=== PATIENT | male | born 2000 | race Caucasian/White ===

== ENCOUNTER → 2023-10-04 09:40 | Outpatient (REF) | payer BC, SELFPAY ==
[2023-10-04 19:14] LABS: Urine Albumin Trace (Neg - Trace); Urine Bilirubin Negative (Negative); Urine Character Clear (Clear); Urine Color Yellow; Urine Glucose Negative (Negative); Urine Ketone Negative (Negative); Urine Leukocyte Negative (Negative); Urine Nitrite Negative (Negative); Urine Occult Blood Negative (Negative); Urine Specific Gravity 1.015 (<1.030); Urine Urobilinogen Negative (Neg - 1+)
== END ==
LOC: CLAB 09:40
PROVIDERS: ATTENDING PHYSICIAN Registered Nurse
DX: R35.0 Frequency of micturition (principal)
CPT/HCPCS: 81003; 87086

== ENCOUNTER → 2023-10-05 07:04 | Outpatient (REF) | payer BC, SELFPAY ==
[2023-10-05 08:15] LABS: ALT (SGPT) 17 U/L (0-50); AST (SGOT) 25 U/L (17-59); Albumin 5.4 g/dl (3.5-5.0); Alkaline Phosphatase 73 U/L (38-126); Blood Urea Nitrogen 12 mg/dl (9-20); Calcium 10.2 mg/dl (8.4-10.2); Carbon Dioxide 27 mmol/L (22-30); Chloride 100 mmol/L (98-107); Creatine Phosphokinase 82 U/L (55-170); Glucose 94 mg/dl (70-99); HDL Cholesterol 61 mg/dl; LDL Cholesterol, Calculated 151 mg/dl; Potassium 4.2 mmol/L (3.5-5.1); Sodium 137 mmol/L (135-145); Total Bilirubin 1.1 mg/dl (0.2-1.3); Total Cholesterol 226 mg/dl (50-199); Total Protein 8.6 g/dl (6.3-8.2); Triglyceride 72 mg/dl (10-149); Very Low Density Lipoprotein 14 mg/dl (0-30); eGFR > 60.00
[2023-10-05 08:17] LABS: Osmolality Urine 153 mOsm/kg (300-900)
[2023-10-05 08:42] LABS: TSH Reflex To Free T4 1.55 uIU/ml (0.47-4.68)
[2023-10-05 09:36] LABS: Glycohemoglobin (HgbA1c) 5.5 % (4.0-5.6)
== END ==
LOC: REG 07:04
PROVIDERS: ATTENDING PHYSICIAN Registered Nurse
DX: R35.0 Frequency of micturition (principal); M79.10 Myalgia, unspecified site; R80.9 Proteinuria, unspecified
CPT/HCPCS: 36415; 80053; 80061; 82550; 83036; 83935; 84443

== ENCOUNTER → 2023-10-06 08:02 | Outpatient (REF) | payer BC, SELFPAY ==
[2023-10-06 10:37] LABS: Urine Sodium 131 mmol/L (30-90)
[2023-10-06 17:53] LABS: Osmolality Serum 291 mOsm/kg (275-300)
== END ==
LOC: REG 08:02
PROVIDERS: ATTENDING PHYSICIAN Nurse Practitioner Adult Health; FAMILY PHYSICIAN Registered Nurse
DX: R82.90 Unspecified abnormal findings in urine (principal)
CPT/HCPCS: 36415; 83930; 84300

== ENCOUNTER → 2023-10-22 10:52 | Outpatient (REF) | payer BC, SELFPAY ==
[2023-10-22 11:31] LABS: Urine Albumin Negative (Neg - Trace); Urine Bilirubin Negative (Negative); Urine Character Clear (Clear); Urine Color Yellow; Urine Glucose Negative (Negative); Urine Ketone Negative (Negative); Urine Leukocyte Negative (Negative); Urine Nitrite Negative (Negative); Urine Occult Blood Negative (Negative); Urine Specific Gravity 1.025 (<1.030); Urine Urobilinogen Negative (Neg - 1+)
[2023-10-22 11:48] LABS: Osmolality Urine 1051 mOsm/kg (300-900)
[2023-10-22 11:52] LABS: Blood Urea Nitrogen 18 mg/dl (9-20); Calcium 9.8 mg/dl (8.4-10.2); Carbon Dioxide 30 mmol/L (22-30); Chloride 100 mmol/L (98-107); Glucose 93 mg/dl (70-99); Potassium 4.1 mmol/L (3.5-5.1); Sodium 138 mmol/L (135-145); eGFR > 60.00
[2023-10-22 12:05] LABS: Urine Sodium 74 mmol/L (30-90)
[2023-10-22 12:10] LABS: Microalbumin, Random Urine 1.3 mg/dl (0.6-1.7); Microalbumin/creatinine Ratio 4.2 mg/g
[2023-10-22 14:03] LABS: Osmolality Serum 295 mOsm/kg (275-300)
== END ==
LOC: REG 10:52
PROVIDERS: ATTENDING PHYSICIAN Registered Nurse
DX: R82.90 Unspecified abnormal findings in urine (principal); R89.9 Unspecified abnormal finding in specimens from other organs, systems and tissues
CPT/HCPCS: 36415; 80048; 81003; 82043; 82570; 83930; 83935; 84300